=== PATIENT | male | born 1955 | race Asian ===

== ENCOUNTER 2017-05-09 17:35 | Emergency (ER) | payer OTHER ==
[~2017-05-09] VITALS: Ht 190.5 cm; Wt 103.0 kg
[2017-05-09 17:36] VITALS: TEMP 36.8; Ht 190.5 cm; Wt 103.0 kg
[2017-05-09] MEDS ORDERED: antihypertensive (18:08)
[2017-05-09] MEDS ORDERED: LEVO25TA PO (18:08)
--- NOTE | 2017-05-09 19:00 | DIAGNOSTIC IMAGING REPORT ---
RIGHT FIRST FINGER 3 VIEWS CLINICAL HISTORY: Right thumb crushing injury. FINDINGS: 3 views of the right thumb are obtained. No prior studies are available for comparison at the time of dictation. The skeletal structures are well mineralized for age. No fracture is seen in the first finger. Arthritic change with bony overgrowth is seen at the first interphalangeal joint. Mild arthritic change is present at the first carpometacarpal and metacarpophalangeal joints. Mild soft tissue swelling is suggested in the thumb. Arthritic change is noted in the partially imaged second finger. IMPRESSION: 1. There is no radiographic evidence of right thumb fracture. 2. Arthritic change as above. Electronically signed by: Macario Hsu M.D. 05/09/2017 6:59 PM Dictated Date/Time: 05/09/2017 6:58 PM
--- NOTE | 2017-05-09 19:09 | DIAGNOSTIC IMAGING REPORT ---
RIGHT SHOULDER 3 VIEWS CLINICAL HISTORY: Right shoulder pain. FINDINGS: 3 views of the right shoulder are obtained. No prior studies are available for comparison at the time of dictation. The skeletal structures are well mineralized for age. No fracture or dislocation is seen. Arthritic change is noted at the glenohumeral and acromioclavicular joints. The overlying soft tissues are within normal limits. The partially imaged right upper lobe lung parenchyma appears clear. IMPRESSION: Mild arthritic change with no acute bony abnormality seen in the right shoulder. Electronically signed by: Macario Hsu M.D. 05/09/2017 7:07 PM Dictated Date/Time: 05/09/2017 7:06 PM
[2017-05-09] MEDS ORDERED: IBUPROFEN 600 MG TAB PO STA (19:23)
[2017-05-09 19:34] VITALS: BP 148/96; PULSE 68; O2SAT 97
--- NOTE | 2017-05-09 23:57 | EMERGENCY ROOM VISIT NOTE ---
ED Visit Note First contact with patient: 17:40 Chief Complaint: Right thumb and shoulder pain. History of Present Illness: Mr. Lind is a 61-year-old [place] male who ambulates into the ED complaining of right thumb pain and right shoulder pain. Patient reports yesterday he accidentally closed his right thumb in the door of his house. Since that time he reports he has been having a throbbing discomfort over the distal phalanx. He rates this discomfort 7/10. His pain is nonradiating. Pain worsens with palpation. He reports there was blood under the thumbnail and when he put a hole in the thumbnail he had some mild relief of discomfort. He denies any thumb weakness/numbness/tingling, pain over the interphalangeal joint or the DIP joint and any previous significant injuries or surgeries. Patient reports approximately sign time he closed his thumb in a door he started having pain over the posterior aspect of the right shoulder in the trapezius muscle above the medial border of the scapula. Since that time this pain has been constant. He describes this as a cramping like sensation. He does not rate his discomfort. He has not identified any aggravating or alleviating factors related to the pain. He denies any associated neck pain, previous significant injuries or surgeries, other shoulder pain, upper extremity weakness/numbness/tingling. Review of Systems: As noted above in history of present illness. 5 body systems were reviewed and found to be negative as noted above. Past Medical History: Hypothyroidism. Current Medications: Synthroid. Allergies to Medications: Patient denies. Social History: Patient feels safe in his home environment; he denies tobacco use. Physical Examination: Vital Signs: Date Time Temp Pulse Resp B/P (MAP) Pulse Ox O2 Delivery O2 Flow Rate FiO2 05/09/17 19:34 68 16 148/96 97 05/09/17 17:36 36.8 64 18 147/74 96 GENERAL: 61-year-old male in mild distress due to pain, nontoxic-appearing, afebrile and hemodynamically stable. NEUROLOGICAL: Awake, alert and oriented to person, place and time. Answering questions appropriately and following commands. SKIN: Warm, dry and pink. RIGHT UPPER EXTREMITY: No gross bony deformity. Moderate tenderness over the trapezius muscle just above the scapula. No muscle deformity, swelling or palpable spasm. No tenderness over the scapula, clavicle or glenohumeral joint. Full range of motion of the shoulder. No tenderness over the bony cervical spine or paraspinous musculature. Right thumb: No gross bony deformity. No tenderness over the MCP joint or interphalangeal joint. Moderate tenderness, swelling and ecchymosis surrounding the distal phalanx. Currently there is no subungual hematoma. Patient was able to distinguish light sensations through all dermatomes of the thumb. ED Course: Patient is assessed as noted above. Patient's medication list was reviewed. Right Thumb X-Ray: Was read by myself and the radiologist and showing no acute fractures or dislocations. Arthritic changes was noted. Right Shoulder X-Rays: Were read by myself and shows no acute fractures or dislocations. Mild arthritic changes were noted. Patient was given 600 mg of ibuprofen by mouth for pain. I did attempt to put patient's thumb into a cage splint but he reports this was putting too much pressure and increasing his pain. Patient was educated about today's findings and instructed on his treatment plan ; he verbalizes understanding and agreement with this plan. Clinical Impression: Right thumb contusion. Right shoulder pain. Disposition: Patient discharged home in stable condition; prior to departure he was reassessed and subjectively reported he was feeling the same. Plan: Comfort measures, wound care, signs of infection were discussed with the patient. Patient is encouraged to contact his family physician for follow-up care and treatment. Patient was encouraged return ED for worsening/uncontrolled pain, any signs of infection or any new/concerning symptoms.
== END 2017-05-09 19:35 | disposition home or self-care (01) ==
LOC: C.EDB 17:36 → C.EDD 19:35
DX: S60.011A Contusion of right thumb without damage to nail, initial encounter (principal); M25.511 Pain in right shoulder; X50.9XXA Other and unspecified overexertion or strenuous movements or postures, initial encounter; E03.9 Hypothyroidism, unspecified